=== PATIENT | female | born 1965 | race Hispanic/Latino ===

== ENCOUNTER 2018-03-21 20:02 | Emergency (ER) | payer SELFPAY ==
[2018-03-21] MEDS ORDERED: SODIUM CHLORIDE 0.9% 1000ML 1,000 ML IV ONE (20:14)
[2018-03-21] MEDS ORDERED: ONDANSETRON HCL MDV 20ML 2 MG/ML VIAL ONE (20:14)
[2018-03-21] MEDS ORDERED: LORAZEPAM 2 MG/ML 1 ML VIAL ONE (20:15)
[2018-03-21 20:19] LABS: BASOPHILS % (AUTO) 0.6 % (0.0-5.0); EOSINOPHILS % (AUTO) 0.7 % (0.0-8.0); HEMATOCRIT 39.3 % (36-48); LYMPHOCYTES % (AUTO) 46.2 % (21.0-51.0); MEAN CORPUSCULAR HEMOGLOBIN 30.5 pg (27.0-33.0); MEAN CORPUSCULAR HGB CONC 35.1 g/dL (32.0-36.0); MONOCYTES % (AUTO) 6.1 % (3.0-13.0); NEUTROPHILS % (AUTO) 46.4 % (40.0-77.0); PLATELET COUNT (AUTO) 318 K/uL (130-400); RED BLOOD CELL COUNT(AUTO) 4.52 MIL/uL (4.00-5.50); RED CELL DISTRIBUTION WIDTH 13.4 % (11.0-15.5); WHITE BLOOD COUNT (AUTO) 8.7 K/uL (4.8-10.8)
[2018-03-21 20:30] LABS: CREATININE 1.1 mg/dL (0.5-1.5); POTASSIUM 3.2 mmol/L (3.5-5.1)
[2018-03-21 20:34] LABS: ALBUMIN 3.6 g/dL (3.5-5.0); BILIRUBIN,TOTAL 0.1 mg/dL (0.2-1.0); TOTAL PROTEIN, SERUM 8.3 g/dL (6.0-8.3)
[2018-03-21] MEDS ORDERED: POTASSIUM CHLORIDE 20 MEQ ERTAB PO ONE (21:20)
== END 2018-03-21 21:35 | disposition home or self-care (01) ==
LOC: EDH 20:02
DX: R00.0 Tachycardia, unspecified (principal); R07.9 Chest pain, unspecified; F41.9 Anxiety disorder, unspecified; R11.2 Nausea with vomiting, unspecified; I10 Essential (primary) hypertension; Z98.890 Other specified postprocedural states
CPT/HCPCS: 36415; 71045; 80053; 82550; 83690; 84484; 85025; 85378; 96361; 96374; 96375; 99285; J2060; J7030